=== PATIENT | female | born 1955 | race Caucasian/White ===

== ENCOUNTER 2024-03-04 10:06 | Outpatient (CLI) | payer MEDICARE ==
[2024-03-04 13:02] LABS: #Eosinphils 0.18 10x3/uL (0.0-0.5); #Neutrophils 3.09 10x3/uL (1.5-8.4); %Basophils 1.6 % (0.0-2.0); %Monocytes 6.6 % (0.0-10.0); %Neutrophils 50.6 % (40.0-75.0); Hematocrit 44.7 % (34.9-44.5); Hemoglobin 14.7 g/dL (12.0-15.5); Mean Corpuscular HGB CONC 32.9 g/dL (32.0-36.0); Mean Corpuscular Hemoglobin 31.7 pg (27.0-33.0); Mean Corpuscular Volume 96.3 fL (81.6-98.3); Platelet Count 157 10x3/uL (150-450); RBC Distribution Width 12.4 % (11.5-14.5); Red Blood Cell (RBC) Count 4.64 10x6/uL (3.90-5.03); White Blood Cell (WBC) Count 6.1 10x3/uL (3.5-10.5)
[2024-03-04 13:06] LABS: Anion Gap 13 mmol/L (10-20); BUN (Urea Nitrogen) 10 mg/dL (9.8-20.1); Calc. Creatinine Clearance 0 mL/min (70-130); Calcium 9.7 mg/dL (7.8-10.44); Carbon Dioxide 22 mmol/L (23-31); Chloride 109 mmol/L (98-107); Estimated GFR 94; Glucose 80 mg/dL (80-115); Potassium 3.8 mmol/L (3.5-5.1); Sodium 140 mmol/L (136-145)
== END 2024-03-04 10:07 | disposition home or self-care (01) ==
LOC: CSHLAB 10:06
PROVIDERS: ATTEND Surgery
DX: Z01.812 Encounter for preprocedural laboratory examination (principal); K43.2 Incisional hernia without obstruction or gangrene
CPT/HCPCS: 80048; 85025

== ENCOUNTER 2024-03-09 08:42 | Observation (INO) | payer MEDICARE ==
[2024-03-04 11:13] VITALS: BMI 27.4
[2024-03-09] MEDS ORDERED: CEFAZOLIN 2 GM VIAL ONE (09:46)
[2024-03-09] MEDS ORDERED: Bupivacaine/Epinephrine 0.25% 30 ML VIAL ONE ×2 (09:46→11:42)
[2024-03-09] MEDS ORDERED: Midazolam HCl 2 mg/2 ml Vial ONE (11:13)
[2024-03-09] MEDS ORDERED: Lidocaine 1% PF 5 ML VIAL ONE (11:14)
[2024-03-09] MEDS ORDERED: fentaNYL 50 mcg/mL 1 mL Vial ONE ×4 (11:14→12:42)
[2024-03-09] MEDS ORDERED: Rocuronium Bromide 10 MG/ML (10ML VIAL) ONE (11:14)
[2024-03-09] MEDS ORDERED: PROPOFOL 20 ML ONE (11:14)
[2024-03-09] MEDS ORDERED: Dexamethasone 4 mg/ml Vial ONE (11:20)
[2024-03-09] MEDS ORDERED: PHENYLEPHRINE-NS 100 MCG/ML 10 ML SYRINGE ONE (11:23)
[2024-03-09] MEDS ORDERED: ePHEDrine Sulfate 50 MG/10 ML VIAL ONE (11:46)
[2024-03-09] MEDS ORDERED: Ondansetron PF 4 MG/2 ML Vial ONE (15:15)
[2024-03-09] MEDS ORDERED: SUGAMMADEX SODIUM 200 MG/2 ML VIAL ONE (15:15)
[2024-03-09] MEDS ORDERED: Ketorolac Tromethamine 30 MG (1 mL) VIAL ONE (15:15)
[2024-03-09] MEDS ORDERED: HYDROmorphone 0.5 MG/0.5 ML SYRINGE ONE ×3 (15:43→16:17)
[2024-03-09] MEDS ORDERED: Glucagon 1 MG/ML KIT IM PRN (17:00)
[2024-03-09] MEDS ORDERED: Ondansetron PF 4 MG/2 ML Vial IVP PRN (17:00)
[2024-03-09] MEDS ORDERED: Dextrose 5% in Water 1,000 ML IV PRN (17:00)
[2024-03-09] MEDS ORDERED: Dextrose 50% Abboject 50 ML SYRINGE SLOW IVP PRN (17:00)
[2024-03-09] MEDS ORDERED: Morphine 4 MG/ML VIAL SLOW IVP PRN (17:00)
[2024-03-09] MEDS ORDERED: Ipratropium/Albuterol 3 ML NEB NEB PRN (17:00)
[2024-03-09] MEDS ORDERED: hydrALAZINE 20 MG/ML VIAL SLOW IVP PRN (17:00)
[2024-03-09] MEDS ORDERED: Promethazine HCl 25 MG/ML VIAL IM PRN (17:00)
[2024-03-09] MEDS: D5 1/2 NS w/20 mEq KCL 1,000 ML IV SCH (17:45)
[2024-03-09] MEDS: Ketorolac Tromethamine 30 MG (1 mL) VIAL IVP SCH (18:50)
[2024-03-09] MEDS: traMADol HCl 50 MG TAB PO PRN (20:27)
[2024-03-09] MEDS: Acetaminophen 325 MG TAB PO SCH (21:28)
[2024-03-09] MEDS: Atorvastatin Calcium 10 MG TAB PO SCH (21:28)
[2024-03-09] MEDS: Famotidine 20 MG TAB PO SCH (21:28)
[2024-03-09] MEDS: Famotidine/PF 20 mg/2ml Vial SLOW IVP SCH (22:32)
[2024-03-10] MEDS: Ketorolac Tromethamine 30 MG (1 mL) VIAL IVP SCH (03:17)
[2024-03-10 04:40] LABS: #Basophils 0.04 10x3/uL (0.0-0.2); #Monocytes 0.79 10x3/uL (0.0-1.1); #Neutrophils 8.27 10x3/uL (1.5-8.4); %Basophils 0.4 % (0.0-2.0); %Lymphocytes 10.9 % (18.0-47.0); %Monocytes 7.7 % (0.0-10.0); %Neutrophils 80.7 % (40.0-75.0); Hematocrit 38.7 % (34.9-44.5); Hemoglobin 12.6 g/dL (12.0-15.5); Mean Corpuscular HGB CONC 32.6 g/dL (32.0-36.0); Mean Corpuscular Hemoglobin 31.7 pg (27.0-33.0); Mean Corpuscular Volume 97.2 fL (81.6-98.3); Mean Platelet Volume 12.3 fL (7.4-10.4); Platelet Count 149 10x3/uL (150-450); RBC Distribution Width 12.5 % (11.5-14.5); Red Blood Cell (RBC) Count 3.98 10x6/uL (3.90-5.03); White Blood Cell (WBC) Count 10.3 10x3/uL (3.5-10.5)
[2024-03-10 04:49] LABS: Anion Gap 14 mmol/L (10-20); BUN (Urea Nitrogen) 14 mg/dL (9.8-20.1); Calc. Creatinine Clearance 95 mL/min (70-130); Calcium 8.7 mg/dL (7.8-10.44); Carbon Dioxide 21 mmol/L (23-31); Chloride 109 mmol/L (98-107); Estimated GFR 96; Glucose 114 mg/dL (80-115); Potassium 3.9 mmol/L (3.5-5.1); Sodium 140 mmol/L (136-145)
[2024-03-10] MEDS ORDERED: OLMESARTAN MEDOXOMIL 20 MG PO SCH (09:00)
[2024-03-10] MEDS: Losartan 50 MG TAB PO SCH (09:50)
[2024-03-10 13:32] VITALS: BP 128/76; TEMP 98.2
== END 2024-03-10 14:45 | disposition home or self-care (01) ==
LOC: CSHSDC 08:42 → CSHTELE 09:20
PROVIDERS: ADMIT Surgery; ATTEND Surgery
PROC: 0WUF4JZ Supplement Abdominal Wall with Synthetic Substitute, Percutaneous Endoscopic Approach (ICD-10-PCS; principal; 2024-03-09)
DX: K43.2 Incisional hernia without obstruction or gangrene (principal); I10 Essential (primary) hypertension; I25.10 Atherosclerotic heart disease of native coronary artery without angina pectoris; I48.0 Paroxysmal atrial fibrillation; Z88.2 Allergy status to sulfonamides; Z79.01 Long term (current) use of anticoagulants; Z79.899 Other long term (current) drug therapy; Z91.014 Allergy to mammalian meats; Z91.048 Other nonmedicinal substance allergy status; Z88.5 Allergy status to narcotic agent
CPT/HCPCS: 14301; 49595; 80048; 85025; 94760; J1100; J1170; J1885; J2250; J2405; J2704; J3010; J3480